=== PATIENT | female | born 2000 | race African-American/Black ===

== ENCOUNTER 2019-01-06 23:42 | Emergency (ER) | payer MEDICAID ==
[~2019-01-06] VITALS: Ht 167.6 cm; Wt 72.6 kg
[2019-01-06 23:54] VITALS: BP 135/85
--- NOTE | 2019-01-06 23:57 | NUR ---
ED Nurse Note: patient walked in c/o headache, and earache since this morning. AAO x4, VSS at this time, skin is dry intact, warm to touch.
[2019-01-07] MEDS ORDERED: PSEUDOEPHEDRINE60 MG PO (00:16)
[2019-01-07] MEDS ORDERED: IBUPROFEN600 MG ORAL (00:16)
--- NOTE | 2019-01-07 00:16 | Emergency Room Report ---
History of Present Illness General Chief Complaint: Earache Source: Patient Present Illness HPI Is a 18-year-old female with no past medical history. She presents with chief complaint of earache and headache. Onset for last few days. Worse when she stands up. No nausea no vomiting. She does have allergies and does have some mild congestion. No other complaint. Denies any trauma. Denies any fever chills but denies any focal deficit. Allergies: Coded Allergies: No Known Allergies (Unverified , 01/06/19) Patient History Past Medical History: see triage record, old chart reviewed Past Surgical History: none Pertinent Family History: none Social History: Denies: smoking Last Menstrual Period: 01/04/2019 Now: No Immunizations: other Reviewed Nursing Documentation: PMH: Agreed; PSxH: Agreed Nursing Documentation-PMH Past Medical History: No History, Except For Hx Neurological Problems: No - vertigo Review of Systems Eye: Denies: eye pain, blurred vision ENT: Reports: ear pain; Denies: nose congestion, throat swelling Respiratory: Denies: cough, shortness of breath Cardiovascular: Denies: chest pain, palpitations Gastrointestinal: Denies: abdominal pain, diarrhea, nausea, vomiting Musculoskeletal: Denies: back pain, joint pain Skin: Denies: rash Neurological: Reports: headache; Denies: numbness Endocrine: Denies: increased thirst, increased urine Hematologic/Lymphatic: Denies: easy bruising All Other Systems: negative except mentioned in HPI Physical Exam Vital Signs Date Time Temp Pulse Resp B/P (MAP) Pulse Ox O2 Delivery O2 Flow Rate FiO2 01/06/19 23:47 98.8 69 16 135/85 97 Room Air vitals normal Sp02 EP Interpretation: reviewed, normal General Appearance: well appearing, no apparent distress, alert Head: normocephalic, atraumatic Eyes: bilateral eye PERRL, bilateral eye EOMI ENT: hearing grossly normal, normal pharynx, other - Left ear with wax Neck: full range of motion, supple, no meningismus Respiratory: chest non-tender, lungs clear, normal breath sounds Cardiovascular #1: regular rate, rhythm, no murmur Gastrointestinal: normal bowel sounds, non tender, no mass, no organomegaly, no bruit, non-distended Musculoskeletal: back normal, gait/station normal, normal range of motion Psychiatric: mood/affect normal Skin: warm/dry Procedures Additional Procedure Procedure Narrative procedure: Ear irrigation Indication: Cerumen impaction Description: I irrigated the ear with 18 g angiocatheter. moderate amount of wax removed. On recheck no trauma. Patient tolerated problem. Medical Decision Making Diagnostic Impression: Primary Impression: Headache Qualified Codes: R51 - Headache Additional Impression: Cerumen impaction Qualified Codes: H61.22 - Impacted cerumen, left ear ER Course Patient with headache and ear pain. She does have fluid behind the left TM. This may be causing a sinus headache. No evidence of otitis media. We'll discharge home. No evidence of TIA, CVA, meningitis to name a few. Last Vital Signs Date Time Temp Pulse Resp B/P (MAP) Pulse Ox O2 Delivery O2 Flow Rate FiO2 01/06/19 23:54 98.8 16 135/85 97 Room Air 01/06/19 23:47 69 Status: improved Disposition: HOME, SELF-CARE Condition: Stable Scripts Pseudoephedrine Hcl* (SUDAFED*) 60 Mg Tablet 60 MG PO Q6H, #30 TAB Prov: Billy Orellana MD 01/07/19 Ibuprofen* (MOTRIN*) 600 Mg Tablet 600 MG ORAL THREE TIMES A DAY, #30 TAB 0 Refills Prov: Billy Orellana MD 01/07/19 Additional Instructions: Follow-up with your doctor in 7 days. Return if symptom worsen. Billy Orellana MD Jan 07, 2019 00:16
[2019-01-07 00:21] VITALS: BP 135/85
--- NOTE | 2019-01-07 00:22 | NUR ---
ED Nurse Note: Pt cleared by health care Provider for discharge. DC instructions/prescription was given and explained to pt and verbalized understanding of teachings. All medical deviecs such as ID band removed. Pt is AAO x4, ambulatory and left with all personal belongings.
== END 2019-01-07 00:22 | disposition home or self-care (01) ==
LOC: EMR 23:59
DX: R51 Headache (principal); H61.22 Impacted cerumen, left ear
CPT/HCPCS: 99283

== ENCOUNTER 2019-06-16 01:57 | Emergency (ER) | payer BC, MEDICAID ==
[~2019-06-16] VITALS: Ht 167.6 cm; Wt 72.6 kg
[~2019-06-16 01:57] MED LIST: IBUPROFEN600 MG ORAL; PSEUDOEPHEDRINE60 MG PO
[2019-06-16 02:13] VITALS: BP 134/82
[2019-06-16] MEDS ORDERED: Neosporin Oint Ud Pkt TOPIC ONE (02:15)
--- NOTE | 2019-06-16 02:16 | Emergency Room Report ---
History of Present Illness General Chief Complaint: Skin Rash/Abscess Source: Patient Present Illness [facility] This is a 19-year-old female with no past medical history. She presents with chief complaint of possible spider bite to her foot. She noticed that yesterday. She has some redness to the dorsum of the foot. She thought she saw to fang narayanan on it. Denies any spider. Irritated and itchy. Redness is spreading. No drainage. No fever chills but no nausea no vomiting. No other complaint. Allergies: Coded Allergies: No Known Allergies (Unverified , 01/06/19) Patient History Past Medical History: none, see triage record, old chart reviewed Past Surgical History: none Pertinent Family History: none Social History: Denies: smoking Last Menstrual Period: current Now: No Immunizations: other Reviewed Nursing Documentation: PMH: Agreed; PSxH: Agreed Nursing Documentation-PMH Hx Hypertension: Yes Hx Neurological Problems: No - vertigo Review of Systems Eye: Denies: eye pain, blurred vision ENT: Denies: ear pain, nose congestion, throat swelling Respiratory: Denies: cough, shortness of breath Cardiovascular: Denies: chest pain, palpitations Gastrointestinal: Denies: abdominal pain, diarrhea, nausea, vomiting Musculoskeletal: Denies: back pain, joint pain Skin: Reports: rash Neurological: Denies: headache, numbness Endocrine: Denies: increased thirst, increased urine Hematologic/Lymphatic: Denies: easy bruising All Other Systems: negative except mentioned in HPI Physical Exam Vital Signs Date Time Temp Pulse Resp B/P (MAP) Pulse Ox O2 Delivery O2 Flow Rate FiO2 06/16/19 01:59 98.1 64 16 134/82 (99) 100 Room Air vitals normal Sp02 EP Interpretation: reviewed, normal General Appearance: well appearing, no apparent distress, alert Head: normocephalic, atraumatic Eyes: bilateral eye PERRL, bilateral eye EOMI ENT: hearing grossly normal, normal pharynx Neck: full range of motion, supple, no meningismus Respiratory: chest non-tender, lungs clear, normal breath sounds Cardiovascular #1: regular rate, rhythm, no murmur Gastrointestinal: normal bowel sounds, non tender, no mass, no organomegaly, no bruit, non-distended Musculoskeletal: back normal, gait/station normal, normal range of motion, other - Left foot: On the dorsal and medial aspect of foot there is an area of erythema of 2 cm. No fluctuant. No abscess. No necrotizing fasciitis. Neurologic: alert, oriented x3 Psychiatric: mood/affect normal Medical Decision Making Diagnostic Impression: Primary Impression: Cellulitis of foot, left ER Course Patient with cellulitis to the foot. No evidence of necrotizing fasciitis or abscess. Will discharge home. Last Vital Signs Date Time Temp Pulse Resp B/P (MAP) Pulse Ox O2 Delivery O2 Flow Rate FiO2 06/16/19 01:59 98.1 64 16 134/82 (99) 100 Room Air Status: unchanged Disposition: HOME, SELF-CARE Condition: Stable Scripts Mupirocin* (MUPIROCIN*) 22 Gm Oint...g. 1 APPLIC TOPIC THREE TIMES A DAY, #22 GM Prov: Billy Orellana MD 06/16/19 Trimethoprim/Sulfamethoxazole 160/800* (BACTRIM DS TABLET*) 1 Each Tablet 1 TAB ORAL Q12H, #14 TAB 0 Refills Prov: Billy Orellana MD 06/16/19 Additional Instructions: Follow-up with your doctor in 7 days. Keep wound clean. Clean with hydrogen diet first. Then apply antibiotics. Return if symptoms worsen. Billy Orellana MD Jun 16, 2019 02:16
[2019-06-16] MEDS ORDERED: BACTRIM DS TAB1 EAC1 ORAL (02:17)
[2019-06-16] MEDS ORDERED: MUPIROCIN22 GM TOPIC (02:17)
[2019-06-16 02:25] VITALS: BP 134/82
[2019-06-16] MEDS ORDERED: Bactrim-DS 1 tab ORAL ONE (02:30)
== END 2019-06-16 02:25 | disposition home or self-care (01) ==
LOC: EMR 02:10
DX: L03.116 Cellulitis of left lower limb (principal); I10 Essential (primary) hypertension
CPT/HCPCS: 99282

== ENCOUNTER 2019-06-26 22:21 | Emergency (ER) | payer BC, MEDICAID ==
[~2019-06-26] VITALS: Ht 167.6 cm; Wt 52.6 kg
[~2019-06-26 22:21] MED LIST changes: +BACTRIM DS TAB1 EAC1 ORAL; +MUPIROCIN22 GM TOPIC
[2019-06-26 22:51] VITALS: BP 147/84
--- NOTE | 2019-06-26 22:51 | NUR ---
ED Nurse Note: pt walked in to ED C/O lack of motivation and is depressed. pt states she feels very overwhelmed and tressed at school. pt states she has been seeing school councelor fof problems. pt currebtly debies any HI or SI. pt is alert x4. VSS Addendum: 06/27/19 at 0351 by MONY ED Nurse Note: pt walked in to ED C/O lack of motivation and is depressed. pt states she feels very overwhelmed and tressed at school. pt states she has been seeing school councelor for problems. pt currebtly denies any HI or SI. pt is alert x4. VSS
--- NOTE | 2019-06-26 23:00 | NUR ---
ED Nurse Note: pt verbalizes she is worried that she might get to the point of hurting her self and that is the main reason she came to the hospital. Pt has no plan of hurting self at this time.
--- NOTE | 2019-06-26 23:39 | NUR ---
ED Nurse Note: urine and blood sample sent to lab
[2019-06-27 00:01] LABS: BASOPHILS % (AUTO) 0.8 % (0.0-2.0); EOSINOPHILS % (AUTO) 0.8 % (0.0-3.0); HEMATOCRIT 40.2 % (37.0-47.0); HEMOGLOBIN 13.1 G/DL (12.0-16.0); LYMPHOCYTES % (AUTO) 31.3 % (20.0-45.0); MEAN CORPUSCULAR VOLUME 87 FL (80-99); MONOCYTES % (AUTO) 6.9 % (1.0-10.0); NEUTROPHILS % (AUTO) 60.2 % (45.0-75.0); PLATELET COUNT 271 K/UL (150-450); RED CELL DISTRIBUTION WIDTH 12.4 % (11.6-14.8); WHITE BLOOD COUNT 9.8 K/UL (4.8-10.8)
[2019-06-27 00:15] LABS: ANION GAP 7 mmol/L (5-15); BLOOD UREA NITROGEN 7 mg/dL (7-18); CALCIUM 9.1 MG/DL (8.5-10.1); CARBON DIOXIDE 29 MMOL/L (21-32); CHLORIDE 102 MMOL/L (98-107); CREATININE 0.9 MG/DL (0.55-1.30); POTASSIUM 3.6 MMOL/L (3.5-5.1); SODIUM 138 MMOL/L (136-145)
--- NOTE | 2019-06-27 00:18 | Emergency Room Report ---
History of Present Illness General Chief Complaint: General Complaint Source: Patient Present Illness HPI 19-year-old female presents with feeling down for over a week, patient denies any current plan, has SI she states that she has been having thoughts of potentially hurting herself overdosing on something. However has no active plan at this moment, patient denies any chest pain shortness of breath no abdominal pain severity is moderate, symptoms are constant. Patient states that life stressors are aggravating this no alleviating factors, Allergies: Coded Allergies: No Known Allergies (Unverified , 01/06/19) Patient History Past Medical History: see triage record Last Menstrual Period: 06/03/19 Now: No Reviewed Nursing Documentation: PMH: Agreed; PSxH: Agreed Nursing Documentation-PMH Past Medical History: No Stated History Hx Hypertension: Yes Hx Neurological Problems: No - vertigo Review of Systems All Other Systems: negative except mentioned in HPI Physical Exam Vital Signs Date Time Temp Pulse Resp B/P (MAP) Pulse Ox O2 Delivery O2 Flow Rate FiO2 06/26/19 22:40 98.2 64 14 149/79 (102) 95 Room Air 06/26/19 22:51 99 Sp02 EP Interpretation: reviewed, normal General Appearance: well appearing, no apparent distress, alert Head: normocephalic, atraumatic Eyes: bilateral eye PERRL, bilateral eye EOMI ENT: uvula midline, moist mucus membranes Neck: supple, thyroid normal, supple/symm/no masses Respiratory: lungs clear, no respiratory distress, no retraction, no accessory muscle use Cardiovascular #1: normal peripheral pulses, regular rate, rhythm, no edema, no gallop, no murmur Gastrointestinal: non tender, soft, no guarding, no rebound Musculoskeletal: normal inspection Neurologic: alert, oriented x3 Psychiatric: depressed affect, anxious, other - Acutely suicidal Skin: no rash, warm/dry Medical Decision Making Diagnostic Impression: Primary Impression: Behavior concern Additional Impression: Suicidal ideations ER Course 27-year-old female with questionable thoughts of hurting herself, concern for acute SI Patient is medically cleared and will be voluntary Laboratory Tests Test 06/26/19 23:30 White Blood Count 9.8 K/UL (4.8-10.8) Red Blood Count 4.60 M/UL (4.20-5.40) Hemoglobin 13.1 G/DL (12.0-16.0) Hematocrit 40.2 % (37.0-47.0) Mean Corpuscular Volume 87 FL (80-99) Mean Corpuscular Hemoglobin 28.5 PG (27.0-31.0) Mean Corpuscular Hemoglobin Concent 32.6 G/DL (32.0-36.0) Red Cell Distribution Width 12.4 % (11.6-14.8) Platelet Count 271 K/UL (150-450) Mean Platelet Volume 7.6 FL (6.5-10.1) Neutrophils (%) (Auto) 60.2 % (45.0-75.0) Lymphocytes (%) (Auto) 31.3 % (20.0-45.0) Monocytes (%) (Auto) 6.9 % (1.0-10.0) Eosinophils (%) (Auto) 0.8 % (0.0-3.0) Basophils (%) (Auto) 0.8 % (0.0-2.0) Urine HCG, Qualitative Negative (NEGATIVE) Sodium Level 138 MMOL/L (136-145) Potassium Level 3.6 MMOL/L (3.5-5.1) Chloride Level 102 MMOL/L (98-107) Carbon Dioxide Level 29 MMOL/L (21-32) Anion Gap 7 mmol/L (5-15) Blood Urea Nitrogen 7 mg/dL (7-18) Creatinine 0.9 MG/DL (0.55-1.30) Estimate Glomerular Filtration Rate > 60 mL/min (>60) Glucose Level 96 MG/DL (74-106) Calcium Level 9.1 MG/DL (8.5-10.1) Total Bilirubin 0.3 MG/DL (0.2-1.0) Aspartate Amino Transferase (AST) 15 U/L (15-37) Alanine Aminotransferase (ALT) 13 U/L (12-78) Alkaline Phosphatase 43 U/L (46-116) L Total Protein 7.8 G/DL (6.4-8.2) Albumin 4.2 G/DL (3.4-5.0) Globulin 3.6 g/dL Albumin/Globulin Ratio 1.2 (1.0-2.7) Salicylates Level 0.8 ug/mL (2.8-20) L Urine Opiates Screen Negative (NEGATIVE) Acetaminophen Level < 2 MCG/ML (10-30) L Urine Barbiturates Screen Negative (NEGATIVE) Phencyclidine (PCP) Screen Negative (NEGATIVE) Urine Amphetamines Screen Negative (NEGATIVE) Urine Benzodiazepines Screen Negative (NEGATIVE) Urine Cocaine Screen Negative (NEGATIVE) Urine Marijuana (THC) Screen Negative (NEGATIVE) Serum Alcohol < 3 mg/dL Last Vital Signs Date Time Temp Pulse Resp B/P (MAP) Pulse Ox O2 Delivery O2 Flow Rate FiO2 06/26/19 22:51 98.2 70 16 147/84 96 Room Air 06/26/19 22:51 99 Disposition: XFER TO PSYCH HOSP/UNIT Condition: Stable Referrals: NON PHYSICIAN (PCP) Flavio Abreu MD Jun 27, 2019 00:17
[2019-06-27 00:19] LABS: ALANINE AMINOTRANSFERASE 13 U/L (12-78); ALBUMIN 4.2 G/DL (3.4-5.0); ALBUMIN/GLOBULIN RATIO 1.2 (1.0-2.7); ALKALINE PHOSPHATASE 43 U/L (46-116); ASPARTATE AMINO TRANSFERASE 15 U/L (15-37); BILIRUBIN,TOTAL 0.3 MG/DL (0.2-1.0)
[2019-06-27 01:02] VITALS: BP 139/86
--- NOTE | 2019-06-27 01:17 | NUR ---
ED Nurse Note: pt in bed awake, no acute distress is noted.
--- NOTE | 2019-06-27 01:30 | NUR ---
ED Nurse Note: VERIFIED W/ ERMD, D/C IV. PT TOLERATED WELL. DRESSING APPLIED.
[2019-06-27 03:20] VITALS: BP 140/72
--- NOTE | 2019-06-27 03:50 | NUR ---
ED Nurse Note: pt is currently in bed with eyes closed. appears to be sleeping. no acute distress is noted at this time.
--- NOTE | 2019-06-27 04:09 | NUR ---
ED Nurse Note: Pt Report given to KAMI Kate from [facility]
[2019-06-27 04:42] VITALS: BP 130/78
--- NOTE | 2019-06-27 04:42 | NUR ---
ED Nurse Note: pt was picked up by [id number] and left to [facility] via [facility] in stable condition. Pt is alert x4. Report given to ambulance personnel
== END 2019-06-27 04:50 ==
LOC: EMR 22:46
DX: R45.851 Suicidal ideations (principal); I10 Essential (primary) hypertension; F91.9 Conduct disorder, unspecified
CPT/HCPCS: 36415; 80053; 80307; 81025; 85025; 99283; G0480; 80329